=== PATIENT | female | born 1990 | race Caucasian/White ===

== ENCOUNTER 2019-10-18 11:37 | Outpatient (CLI) | payer BC ==
--- NOTE | 2019-10-18 12:37 | RAD ---
EXAM: 2 views of the left hand COMPARISON: None HISTORY: Thumb pain for weeks FINDINGS: 2 views of the hand shows no evidence of acute fracture or dislocation. No degenerative christen nges are seen. No soft tissue swelling is present. IMPRESSION: Unremarkable exam.
== END 2019-10-18 11:38 | disposition home or self-care (01) ==
LOC: SCSRAD 11:37
PROVIDERS: ATTEND Family Medicine
DX: M79.642 Pain in left hand (principal)